=== PATIENT | male | born 1995 | race Caucasian/White ===

== ENCOUNTER 2016-09-05 23:44 | Emergency (ER) | payer SELFPAY ==
[~2016-09-05] VITALS: Ht 185.4 cm; Wt 97.5 kg
[~2016-09-05 23:44] MED LIST: NOMEDS XX
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
[2016-09-06 01:08] VITALS: BP 132/77
== END 2016-09-06 01:12 | disposition home or self-care (01) ==
LOC: ER 23:44
PROC: 0JQP0ZZ Repair Left Lower Leg Subcutaneous Tissue and Fascia, Open Approach (ICD-10-PCS; principal; 2016-09-06)
DX: S81.812A Laceration without foreign body, left lower leg, initial encounter (principal); W23.1XXA Caught, crushed, jammed, or pinched between stationary objects, initial encounter; Y92.89 Other specified places as the place of occurrence of the external cause

== ENCOUNTER → 2016-09-08 | Outpatient (CLI) | payer MEDICAID ==
[2016-09-08 18:47] LABS: LYMPH # 1.4 K/mm3 (0.7-4.5); LYMPH % 20.9 % (10-50)
[2016-09-08 19:13] LABS: BUN 11 mg/dL (7-18)
[2016-09-08 19:14] LABS: GFR (ESTIMATED) 107 ML/MIN (>60)
[2016-09-10 08:43] LABS: Folate (Folic Acid) 6.6 ng/mL (>3.0)
[2016-09-10 09:38] LABS: Vitamin D, 25-Hydroxy 28.2 ng/mL (30.0-100.0)
== END ==
LOC: LAB 18:12
PROVIDERS: Physician Assistant
DX: Z13.0 Encounter for screening for diseases of the blood and blood-forming organs and certain disorders involving the immune mechanism (principal); Z13.1 Encounter for screening for diabetes mellitus; Z13.29 Encounter for screening for other suspected endocrine disorder